=== PATIENT | female | born 1975 | race African-American/Black ===

== ENCOUNTER 2020-02-02 20:27 | Emergency (ER) | payer MEDICAID, OTHER ==
[~2020-02-02] VITALS: Ht 160 cm; Wt 82.0 kg
[2020-02-02 22:11] VITALS: BP 145/80
== END 2020-02-02 22:13 | disposition home or self-care (01) ==
LOC: ER 20:27
DX: Z03.818 Encounter for observation for suspected exposure to other biological agents ruled out (principal); J20.8 Acute bronchitis due to other specified organisms; I10 Essential (primary) hypertension
CPT/HCPCS: 87635; 99282; 99283